=== PATIENT | female | born 1940 | race Caucasian/White ===

== ENCOUNTER 2021-08-23 12:50 | Inpatient (IN) ==
[2021-08-23] MEDS ORDERED: ONDANSETRON 4 MG/2 ML VIAL IV STA (13:16)
[2021-08-23] MEDS ORDERED: PANTOPRAZOLE 40 MG VIAL IV STA (13:16)
[2021-08-23] MEDS ORDERED: SODIUM CHLORIDE 0.9% 1,000 ML IV PRN ×2 (13:17→14:21)
[2021-08-23 13:58] LABS: Basophils # 0.1 10*3/uL (0.0-0.2); Basophils % 0.3 % (0.0-0.8); Eosinophils % 0.1 % (0.00-10.9); Hematocrit 18.8 VOL% (35.7-47.0); Immature Granulocytes % 0.5 %; Immature Granulocytes Absolute 0.08 #; Lymphocytes # 1.3 10*3/uL (1.4-4.0); Lymphocytes % 8.5 % (21.3-54.2); Mean Corpuscular Volume 103.3 FL (87-102); Mean Platelet Volume 10.3 FL (9.6-12.0); Monocytes % 5.9 % (1.7-12.7); Neutrophils % 84.7 % (38.7-73.9); Platelet Count 378 T/CUMM (130-400); Red Blood Count 1.82 MC/CUMM (3.8-5.5); Red Cell Distribution Width 13.1 % (9.3-17.3); White Blood Count 15.4 T/CUMM (4-12)
[2021-08-23 14:06] LABS: Hemoglobin 6.2 GM/DL (12.0-16.0)
[2021-08-23 14:12] LABS: Albumin 2.9 G/DL (3.4-5.0); Bilirubin,Total 1.1 MG/DL (0.20-1.00); Calcium 8.3 MG/DL (8.5-10.1); Osmolality,Calculated 288.7 MOS/KG (273-304); Potassium 4.8 MMOL/L (3.5-5.1); Total Protein 5.1 G/DL (6.4-8.2)
[2021-08-23 14:42] LABS: INR 1.1
[2021-08-23 14:44] LABS: Partial Thromboplastin Time < 20.0 SECS (23.9-33.8)
[2021-08-23] MEDS ORDERED: GLUCAGON 1 MG VIAL IM PRN (15:11)
[2021-08-23] MEDS ORDERED: ONDANSETRON 4 MG/2 ML VIAL IV PRN (15:11)
[2021-08-23] MEDS ORDERED: DEXTROSE 50% 25 GM/50 ML VIAL IV PRN (15:11)
[2021-08-23 16:53] LABS: Hematocrit 24.3 VOL% (35.7-47.0)
[2021-08-23 16:59] LABS: Hemoglobin 8.2 GM/DL (12.0-16.0)
[2021-08-23] MEDS: SODIUM CHLORIDE 0.9% 1,000 ML IV SCH (17:06)
[2021-08-23] MEDS: PANTOPRAZOLE 40 MG VIAL IV SCH (20:33)
[2021-08-23] MEDS: ACETAMINOPHEN 325 MG TABLET PO PRN (20:33)
[2021-08-24 01:19] LABS: Hematocrit 30.3 VOL% (35.7-47.0)
[2021-08-24 01:26] LABS: Hemoglobin 10.1 GM/DL (12.0-16.0)
[2021-08-24 01:32] LABS: Calcium 8.2 MG/DL (8.5-10.1); Osmolality,Calculated 288.7 MOS/KG (273-304)
[2021-08-24 01:39] LABS: Albumin 2.8 G/DL (3.4-5.0); Bilirubin,Direct 0.3 MG/DL (0.0-0.20); Bilirubin,Indirect 1.1 MG/DL (0.0-1.0); Bilirubin,Total 1.4 MG/DL (0.20-1.00)
[2021-08-24 01:50] LABS: % Iron Saturation 33.2 % (18-50); Ferritin 76.5 ng/mL (8-252)
[2021-08-24] MEDS: SODIUM CHLORIDE 0.9% 1,000 ML IV SCH ×3 (03:06→13:05)
[2021-08-24 05:28] LABS: Basophils % 0.4 % (0.0-0.8); Eosinophils % 0.1 % (0.00-10.9); Hematocrit 30.7 VOL% (35.7-47.0); Hemoglobin 10.3 GM/DL (12.0-16.0); Immature Granulocytes % 0.4 %; Immature Granulocytes Absolute 0.04 #; Lymphocytes # 1.9 10*3/uL (1.4-4.0); Mean Corpuscular HGB Conc 33.6 GM/DL (32-36); Mean Corpuscular Volume 98.7 FL (87-102); Mean Platelet Volume 9.9 FL (9.6-12.0); Monocytes % 8.7 % (1.7-12.7); Neutrophils % 69.4 % (38.7-73.9); Platelet Count 209 T/CUMM (130-400); Red Blood Count 3.11 MC/CUMM (3.8-5.5); Red Cell Distribution Width 14.3 % (9.3-17.3); White Blood Count 9.2 T/CUMM (4-12)
[2021-08-24 05:59] LABS: Vitamin B12 1756 PG/ML (211-911)
[2021-08-24 06:46] LABS: Sedimentation Rate-Westergren 11 MM/HR (0-30)
[2021-08-24] MEDS ORDERED: PANTOPRAZOLE 40 MG VIAL IV SCH (09:00)
[2021-08-24] MEDS: PANTOPRAZOLE 40 MG VIAL IV SCH ×2 (09:13→21:12)
[2021-08-24] MEDS: ACETAMINOPHEN 325 MG TABLET PO PRN (21:11)
[2021-08-25] MEDS: SODIUM CHLORIDE 0.9% 1,000 ML IV SCH ×4 (01:35→20:49)
[2021-08-25 04:41] LABS: Basophils % 0.6 % (0.0-0.8); Eosinophils % 0.4 % (0.00-10.9); Hematocrit 27.1 VOL% (35.7-47.0); Hemoglobin 8.8 GM/DL (12.0-16.0); Immature Granulocytes % 0.6 %; Immature Granulocytes Absolute 0.03 #; Lymphocytes # 1.5 10*3/uL (1.4-4.0); Lymphocytes % 28.5 % (21.3-54.2); Mean Corpuscular HGB Conc 32.5 GM/DL (32-36); Mean Corpuscular Volume 100.4 FL (87-102); Monocytes % 8.8 % (1.7-12.7); Neutrophils % 61.1 % (38.7-73.9); Platelet Count 172 T/CUMM (130-400); Red Cell Distribution Width 14.6 % (9.3-17.3); White Blood Count 5.3 T/CUMM (4-12)
[2021-08-25 05:12] LABS: Calcium 8.3 MG/DL (8.5-10.1); Potassium 3.8 MMOL/L (3.5-5.1)
[2021-08-25] MEDS: ACETAMINOPHEN 325 MG TABLET PO PRN ×3 (06:49→22:27)
[2021-08-25] MEDS: PANTOPRAZOLE 40 MG VIAL IV SCH ×2 (08:53→20:43)
[2021-08-25] MEDS ORDERED: hydrALAZINE 20 MG/1 ML VIAL IM PRN (09:08)
[2021-08-25] MEDS: amLODIPine 10 MG TABLET PO SCH (09:46)
[2021-08-25] MEDS: CHOLECALCIFEROL 1,000 UNIT TABLET PO SCH (20:42)
[2021-08-25] MEDS: ATORVASTATIN 10 MG TABLET PO SCH (20:42)
[2021-08-25] MEDS: CALCIUM (CARBONATE)/VITAMIN D 600 MG-400 UNIT TABLET PO SCH (20:42)
[2021-08-26] MEDS: SODIUM CHLORIDE 0.9% 1,000 ML IV SCH ×2 (01:47→20:41)
[2021-08-26 05:30] LABS: Basophils % 0.8 % (0.0-0.8); Eosinophils % 0.6 % (0.00-10.9); Hematocrit 27.6 VOL% (35.7-47.0); Hemoglobin 9.3 GM/DL (12.0-16.0); Immature Granulocytes % 0.4 %; Immature Granulocytes Absolute 0.02 #; Lymphocytes # 1.2 10*3/uL (1.4-4.0); Lymphocytes % 25.1 % (21.3-54.2); Mean Corpuscular HGB Conc 33.7 GM/DL (32-36); Mean Corpuscular Volume 99.3 FL (87-102); Monocytes % 9.6 % (1.7-12.7); Neutrophils % 63.5 % (38.7-73.9); Platelet Count 184 T/CUMM (130-400); Red Blood Count 2.78 MC/CUMM (3.8-5.5); Red Cell Distribution Width 13.8 % (9.3-17.3); White Blood Count 4.7 T/CUMM (4-12)
[2021-08-26 05:50] LABS: Calcium 8.4 MG/DL (8.5-10.1); Osmolality,Calculated 276.4 MOS/KG (273-304); Potassium 3.4 MMOL/L (3.5-5.1)
[2021-08-26 08:27] LABS: Hemoglobin A1 (Alkaline) 97.6 % (96.5-98.5); Hemoglobin A2 (Alkaline) 2.4 % (1.5-3.5)
[2021-08-26] MEDS: amLODIPine 10 MG TABLET PO SCH (08:54)
[2021-08-26] MEDS: FERROUS SULFATE 325 MG TABLET PO SCH (08:54)
[2021-08-26] MEDS: PANTOPRAZOLE 40 MG VIAL IV SCH ×2 (08:55→20:34)
[2021-08-26] MEDS ORDERED: POTASSIUM CHLORIDE 20 MEQ TABLET PO ONE (10:30)
[2021-08-26] MEDS: ACETAMINOPHEN 325 MG TABLET PO PRN ×2 (13:12→21:06)
[2021-08-26] MEDS: CALCIUM (CARBONATE)/VITAMIN D 600 MG-400 UNIT TABLET PO SCH (20:34)
[2021-08-26] MEDS: CHOLECALCIFEROL 1,000 UNIT TABLET PO SCH (20:34)
[2021-08-26] MEDS: ATORVASTATIN 10 MG TABLET PO SCH (20:34)
[2021-08-27 05:13] LABS: Basophils % 0.7 % (0.0-0.8); Eosinophils % 0.5 % (0.00-10.9); Hematocrit 28.1 VOL% (35.7-47.0); Hemoglobin 9.3 GM/DL (12.0-16.0); Immature Granulocytes % 0.5 %; Immature Granulocytes Absolute 0.03 #; Lymphocytes # 1.6 10*3/uL (1.4-4.0); Lymphocytes % 27.8 % (21.3-54.2); Mean Corpuscular HGB Conc 33.1 GM/DL (32-36); Mean Corpuscular Volume 98.9 FL (87-102); Mean Platelet Volume 9.9 FL (9.6-12.0); Monocytes % 9.1 % (1.7-12.7); Neutrophils % 61.4 % (38.7-73.9); Platelet Count 200 T/CUMM (130-400); Red Blood Count 2.84 MC/CUMM (3.8-5.5); Red Cell Distribution Width 13.9 % (9.3-17.3); White Blood Count 5.7 T/CUMM (4-12)
[2021-08-27 05:33] LABS: Albumin 2.9 G/DL (3.4-5.0); Bilirubin,Total 1.4 MG/DL (0.20-1.00); Calcium 8.4 MG/DL (8.5-10.1); Osmolality,Calculated 276.4 MOS/KG (273-304); Potassium 3.6 MMOL/L (3.5-5.1); Total Protein 5.4 G/DL (6.4-8.2)
[2021-08-27] MEDS: SODIUM CHLORIDE 0.9% 1,000 ML IV SCH (05:56)
[2021-08-27] MEDS ORDERED: LACTATED RINGERS 1,000 ML IV SCH (08:00)
[2021-08-27] MEDS: FERROUS SULFATE 325 MG TABLET PO SCH (08:12)
[2021-08-27] MEDS: amLODIPine 10 MG TABLET PO SCH (08:12)
[2021-08-27] MEDS: PANTOPRAZOLE 40 MG VIAL IV SCH ×2 (11:21→20:54)
[2021-08-27] MEDS ORDERED: propofoL 200 MG/20 ML VIAL IV ONE (12:15)
[2021-08-27] MEDS ORDERED: LIDOCAINE 2% 5 ML VIAL ONE (12:15)
[2021-08-27] MEDS: CALCIUM (CARBONATE)/VITAMIN D 600 MG-400 UNIT TABLET PO SCH (20:52)
[2021-08-27] MEDS: CHOLECALCIFEROL 1,000 UNIT TABLET PO SCH (20:52)
[2021-08-27] MEDS: ATORVASTATIN 10 MG TABLET PO SCH (20:53)
[2021-08-28 06:41] LABS: Basophils % 0.7 % (0.0-0.8); Eosinophils % 0.6 % (0.00-10.9); Hematocrit 27.1 VOL% (35.7-47.0); Immature Granulocytes % 0.4 %; Immature Granulocytes Absolute 0.02 #; Lymphocytes # 1.2 10*3/uL (1.4-4.0); Lymphocytes % 21.3 % (21.3-54.2); Mean Corpuscular HGB Conc 33.2 GM/DL (32-36); Mean Corpuscular Volume 100.4 FL (87-102); Mean Platelet Volume 9.9 FL (9.6-12.0); Platelet Count 202 T/CUMM (130-400); Red Cell Distribution Width 14.2 % (9.3-17.3); White Blood Count 5.4 T/CUMM (4-12)
[2021-08-28 07:13] LABS: Albumin 2.6 G/DL (3.4-5.0); Calcium 8.5 MG/DL (8.5-10.1); Osmolality,Calculated 277.4 MOS/KG (273-304); Potassium 3.7 MMOL/L (3.5-5.1)
[2021-08-28] MEDS: SODIUM CHLORIDE 0.9% 1,000 ML IV SCH (08:49)
[2021-08-28] MEDS: amLODIPine 10 MG TABLET PO SCH (08:50)
[2021-08-28] MEDS: PANTOPRAZOLE 40 MG VIAL IV SCH (08:50)
[2021-08-28] MEDS: FERROUS SULFATE 325 MG TABLET PO SCH (08:50)
[2021-08-28 18:39] VITALS: BP 143/58
[2021-08-29 12:55] LABS: Soluble Transf Receptor (sTfR) 1.5 mg/L (1.8 - 4.6)
== END 2021-08-28 19:45 | disposition home or self-care (01) | DRG 378 ==
LOC: EDBD → EDUNIT# → N.ED 12:50 → N.EDINP 15:11 → N.3E 15:48
PROVIDERS: ADMIT Hospitalist; ATTEND Hospitalist

== ENCOUNTER 2021-09-01 20:59 | Inpatient (IN) ==
[2021-09-01] MEDS ORDERED: PANTOPRAZOLE 40 MG VIAL IV STA (21:24)
[2021-09-01 22:02] LABS: Basophils % 0.3 % (0.0-0.8); Hematocrit 24.2 VOL% (35.7-47.0); Hemoglobin 8.3 GM/DL (12.0-16.0); Immature Granulocytes % 0.5 %; Immature Granulocytes Absolute 0.04 #; Lymphocytes # 0.8 10*3/uL (1.4-4.0); Lymphocytes % 11.2 % (21.3-54.2); Mean Corpuscular HGB Conc 34.3 GM/DL (32-36); Mean Corpuscular Volume 103.4 FL (87-102); Monocytes % 10.1 % (1.7-12.7); NRBC # 0.02 10*3/uL; Neutrophils % 77.9 % (38.7-73.9); Platelet Count 113 T/CUMM (130-400); Red Blood Count 2.34 MC/CUMM (3.8-5.5); Red Cell Distribution Width 15.2 % (9.3-17.3); White Blood Count 7.5 T/CUMM (4-12)
[2021-09-01 22:23] LABS: Albumin 3.2 G/DL (3.4-5.0); Bilirubin,Total 4.9 MG/DL (0.20-1.00); Potassium 3.7 MMOL/L (3.5-5.1); Total Protein 5.6 G/DL (6.4-8.2)
[2021-09-02] MEDS ORDERED: ONDANSETRON 4 MG/2 ML VIAL IV PRN (05:39)
[2021-09-02] MEDS: SODIUM CHLORIDE 0.9% 1,000 ML IV SCH ×2 (06:18→21:51)
[2021-09-02] MEDS: PIPERACILLIN/TAZOBACTAM 3,375 MG in SODIUM CHLORIDE 0.9% 100 ML IV SCH ×3 (06:18→21:43)
[2021-09-02] MEDS: PANTOPRAZOLE 40 MG VIAL IV SCH ×2 (08:47→21:43)
[2021-09-02 09:35] LABS: Hematocrit 21.8 VOL% (35.7-47.0); Hemoglobin 7.3 GM/DL (12.0-16.0)
[2021-09-02] MEDS ORDERED: SODIUM CHLORIDE 0.9% 1,000 ML IV PRN (16:46)
[2021-09-02 17:53] LABS: Hematocrit 24.6 VOL% (35.7-47.0); Hemoglobin 8.2 GM/DL (12.0-16.0)
[2021-09-03] MEDS: PIPERACILLIN/TAZOBACTAM 3,375 MG in SODIUM CHLORIDE 0.9% 100 ML IV SCH ×3 (05:46→22:22)
[2021-09-03 05:58] LABS: Basophils % 0.5 % (0.0-0.8); Eosinophils % 0.2 % (0.00-10.9); Hematocrit 22.1 VOL% (35.7-47.0); Hemoglobin 7.4 GM/DL (12.0-16.0); Immature Granulocytes % 0.5 %; Immature Granulocytes Absolute 0.02 #; Lymphocytes % 23.7 % (21.3-54.2); Mean Corpuscular HGB Conc 33.5 GM/DL (32-36); Mean Corpuscular Volume 105.2 FL (87-102); Mean Platelet Volume 12.5 FL (9.6-12.0); Monocytes % 10.9 % (1.7-12.7); Neutrophils % 64.2 % (38.7-73.9); Platelet Count 93 T/CUMM (130-400); Red Cell Distribution Width 15.8 % (9.3-17.3); White Blood Count 4.1 T/CUMM (4-12)
[2021-09-03 06:10] LABS: PT Patient Result 11.4 SECS (10.5-12.0)
[2021-09-03 06:36] LABS: Albumin 2.7 G/DL (3.4-5.0); Bilirubin,Direct 0.45 MG/DL (0.0-0.20); Bilirubin,Indirect 3.1 MG/DL (0.0-1.0); Bilirubin,Total 3.5 MG/DL (0.20-1.00); Total Protein 5.5 G/DL (6.4-8.2)
[2021-09-03 07:13] LABS: Calcium 8.5 MG/DL (8.5-10.1); Potassium 3.6 MMOL/L (3.5-5.1)
[2021-09-03] MEDS ORDERED: INDOMETHACIN SUPP 50 MG SUPP RECTAL ONE ×2 (09:59→12:35)
[2021-09-03] MEDS: PANTOPRAZOLE 40 MG VIAL IV SCH ×2 (10:40→21:50)
[2021-09-03] MEDS: LACTATED RINGERS 1,000 ML IV SCH ×2 (10:41→10:45)
[2021-09-03] MEDS ORDERED: propofoL 200 MG/20 ML VIAL IV ONE (11:52)
[2021-09-03] MEDS ORDERED: SUCCINYLCHOLINE 200 MG/10 ML VIAL ONE (11:52)
[2021-09-03] MEDS ORDERED: SEVOFLURANE 1 UNIT/15 MINUTE INH ONE ×2 (11:52→12:45)
[2021-09-03] MEDS ORDERED: fentaNYL 100 MCG/2 ML VIAL ONE (11:52)
[2021-09-03] MEDS ORDERED: LIDOCAINE 2% 5 ML VIAL ONE (11:52)
[2021-09-03] MEDS ORDERED: ONDANSETRON 4 MG/2 ML VIAL ONE (12:45)
[2021-09-03] MEDS ORDERED: PHENYLEPHRINE 1 MG/10 ML SYRINGE IV ONE (12:45)
[2021-09-04] MEDS: PIPERACILLIN/TAZOBACTAM 3,375 MG in SODIUM CHLORIDE 0.9% 100 ML IV SCH ×2 (04:32→14:13)
[2021-09-04 06:26] LABS: Calcium 8.6 MG/DL (8.5-10.1); Osmolality,Calculated 275.7 MOS/KG (273-304); Potassium 3.4 MMOL/L (3.5-5.1)
[2021-09-04 06:28] LABS: Albumin 2.4 G/DL (3.4-5.0); Bilirubin,Direct 0.3 MG/DL (0.0-0.20); Bilirubin,Indirect 4.4 MG/DL (0.0-1.0); Bilirubin,Total 4.7 MG/DL (0.20-1.00); Total Protein 5.2 G/DL (6.4-8.2)
[2021-09-04 08:11] VITALS: BP 136/48
[2021-09-04 08:23] LABS: Basophils % 0.2 % (0.0-0.8); Eosinophils % 0.2 % (0.00-10.9); Hematocrit 29.2 VOL% (35.7-47.0); Immature Granulocytes % 0.4 %; Immature Granulocytes Absolute 0.02 #; Lymphocytes % 18.3 % (21.3-54.2); Mean Corpuscular HGB Conc 33.2 GM/DL (32-36); Mean Corpuscular Volume 103.2 FL (87-102); Mean Platelet Volume 12.2 FL (9.6-12.0); Monocytes % 9.2 % (1.7-12.7); Neutrophils % 71.7 % (38.7-73.9); Platelet Count 106 T/CUMM (130-400); Red Blood Count 2.83 MC/CUMM (3.8-5.5); Red Cell Distribution Width 16.9 % (9.3-17.3); White Blood Count 5.4 T/CUMM (4-12)
[2021-09-04 08:27] LABS: Hemoglobin 9.7 GM/DL (12.0-16.0)
[2021-09-04] MEDS: PANTOPRAZOLE 40 MG VIAL IV SCH (09:45)
[2021-09-04] MEDS ORDERED: POTASSIUM CHLORIDE 20 MEQ PACK PO ONE (11:00)
[2021-09-04] MEDS: LACTATED RINGERS 1,000 ML IV SCH (11:08)
== END 2021-09-04 15:12 | disposition home health service (06) | DRG 446 ==
LOC: EDUNIT# → EDBD → N.ED 20:59 → N.EDINP 09-02 04:44 → N.5E 09-02 16:07
PROVIDERS: ADMIT Internal Medicine; ATTEND Internal Medicine
PROC: ERCPWSP (ICD-10-PCS; 2021-09-03 10:05)